=== PATIENT | male | born 1955 | race Caucasian/White ===

== ENCOUNTER 2022-08-12 07:30 | Day surgery (SDC) | payer MEDICARE ==
[2022-08-07 16:34] LABS: BASOPHILS % (AUTO) 0.5 % (0-1); EOSINOPHILS # (AUTO) 0.2 X10'3 (0-0.9); EOSINOPHILS % (AUTO) 2.1 % (0-6); LYMPHOCYTES % (AUTO) 24.8 % (21-51); MEAN CORPUSCULAR HEMOGLOBIN 33.6 PG (27.0-31.0); MEAN CORPUSCULAR HGB CONC 35.5 g/dL (33.0-36.5); MEAN CORPUSCULAR VOLUME 94.6 FL (78-98); MEAN PLATELET VOLUME 6.9 FL (7.4-10.4); MONOCYTES # (AUTO) 0.7 X10'3 (0-0.9); MONOCYTES % (AUTO) 8.4 % (2-12); NEUTROPHILS # (AUTO) 5.1 X10'3 (1.8-7.7); NEUTROPHILS % (AUTO) 64.2 % (42-75); PRE OP HEMATOCRIT 41.4 % (42.0-52.0); PRE OP HEMOGLOBIN 14.7 g/dL (14.0-17.9); PRE OP PLATELET COUNT 253 X10'3 (140-440); RED BLOOD COUNT 4.38 X10'6 (4.70-6.10)
[2022-08-07 16:51] LABS: ALBUMIN 4.2 G/DL (3.4-5.0); ALBUMIN/GLOBULIN RATIO 1.2 (1.1-1.5); ALKALINE PHOSPHATASE 61 IU/L (46-116); BLOOD UREA NITROGEN 15 MG/DL (7-18); BUN/CREATININE RATIO 13.6 (5.4-32.0); CALCIUM 9.2 MG/DL (8.5-10.1); CHLORIDE 103 MMOL/L (99-107); PRE OP ALT 48 U/L (30-65); PRE OP ANION GAP 8 (8-16); PRE OP AST 26 U/L (10-37); PRE OP BILIRUB, TOTAL 0.7 MG/DL (0.0-1.0); PRE OP GLUCOSE 87 MG/DL (70-104); PRE OP POTASSIUM 3.8 MMOL/L (3.4-5.1); PRE OP SODIUM 139 MMOL/L (135-145); TOTAL CARBON DIOXIDE 27.7 MMOL/L (24-32); TOTAL PROTEIN 7.6 G/DL (6.4-8.2); eGFR 67 ML/MIN
[~2022-08-12] VITALS: Ht 172.7 cm; Wt 98.4 kg
[2022-08-12] VITALS (17 sets, daily range): BP systolic 119–159; BP diastolic 63–95
[~2022-08-12 07:30] MED LIST: GLUC-95 PO; LISI10TA27 PO; MULT-1085 PO; ROSU40TA22 PO; ZOLP-240; ceFAZolin inj. 2,000 MG in dextrose 5%-water 100 ML IV ONE; famotidine 20mg tablet PO ONE; ringers solution, lacted 1,000 ML IV SCH
[2022-08-12] MEDS ORDERED: LIDOCAINE 1%/EPI 1:100,000 inj. 10 ML multi-dose vial ONE (09:30)
[2022-08-12] MEDS ORDERED: BUPIVAcaine/PF 2.5 mg/ml (0.25%) 30ml vial ONE (09:30)
[2022-08-12] MEDS ORDERED: tobramycin 40mg/ml inj ONE (09:30)
[2022-08-12] MEDS ORDERED: midazolam 1 mg/ML 2ml injection ONE (09:44)
[2022-08-12] MEDS ORDERED: fentaNYL/PF 50MCG/1 ML 2ML syringe ONE (09:44)
[2022-08-12] MEDS ORDERED: propofol inj 20 ML IV ONE (09:47)
[2022-08-12] MEDS ORDERED: LIDOcaine 2% (20mg/ml) 5ml vial ONE (09:47)
[2022-08-12] MEDS ORDERED: rocuronium 10mg/ml inj IV ONE ×2 (09:47→11:03)
[2022-08-12] MEDS ORDERED: ondansetron/PF 4mg/2ml inj ONE (09:47)
[2022-08-12] MEDS ORDERED: ondansetron/PF 4mg/2ml inj IV PRN (10:25)
[2022-08-12] MEDS ORDERED: ringers solution, lacted 1,000 ML IV SCH (10:25)
[2022-08-12] MEDS ORDERED: hydrALAZINE 20mg/ml inj. IV PRN (10:25)
[2022-08-12] MEDS ORDERED: fentaNYL/PF 50MCG/1 ML 2ML syringe IV PRN ×2 (10:25)
[2022-08-12] MEDS ORDERED: meperidine/PF 25mg/ml syringe IV PRN (10:25)
[2022-08-12] MEDS ORDERED: labetalol 20mg/4ml (5mg/ml) syringe IV PRN (10:25)
[2022-08-12] MEDS ORDERED: morphine 4 MG/ML inj SYRINge IV PRN (10:25)
[2022-08-12] MEDS ORDERED: glycopyrrolate 0.2mg/ml inj ONE (12:09)
[2022-08-12] MEDS ORDERED: neostigmine methylsulfate 1 MG/ML 10ml vial ONE (12:10)
--- NOTE | 2022-08-12 12:31 | NUR ---
Received from OR via BED, accompanied by Anesthesiologist DR ROWE and report given by Anesthesiologist AND FINANCIAL HEALTH COUNSELOR. PT DROWSY, DENIES PAIN. ABDOMEN W/3 LAP SITES CDI. Addendum: 08/12/22 at 1310 by Marjorie Soria RN Amended: Links added.
[2022-08-12] MEDS: morphine 2 MG/ML inj. syringe IV PRN ×2 (13:36→13:56)
[2022-08-12] MEDS ORDERED: HYDROcodone/acetaminophen 5mg/325mg tablet PO ONE (14:05)
--- NOTE | 2022-08-12 15:31 | NUR ---
PT UP AND ABLE TO AMBULATE SAFELY, PAIN TOLERABLE. PT VOIDED, BLADDER SCANNED POST VOID W/0 URINE NOTED. D/C INSTRUCTIONS GIVEN AND GONE OVER W/PT WHO VERBALIZED UNDERSTANDING. PT D/CD TO HOME VIA W/C TO PRIVATE VEHICLE W/O INCIDENT. Addendum: 08/12/22 at 1604 by Marjorie Soria RN Amended: Links added.
== END 2022-08-12 15:31 | disposition home or self-care (01) ==
LOC: PAS 07:30
PROVIDERS: ATTEND Colon & Rectal Surgery
DX: K40.90 Unilateral inguinal hernia, without obstruction or gangrene, not specified as recurrent (principal); K40.30 Unilateral inguinal hernia, with obstruction, without gangrene, not specified as recurrent; I10 Essential (primary) hypertension; I25.10 Atherosclerotic heart disease of native coronary artery without angina pectoris; K21.9 Gastro-esophageal reflux disease without esophagitis; Z98.890 Other specified postprocedural states; Z79.899 Other long term (current) drug therapy; Z72.89 Other problems related to lifestyle; Z95.5 Presence of coronary angioplasty implant and graft
CPT/HCPCS: 36415; 49650; 80053; 82948; 85025; 93005; C1758; C1781; J0690; J2250; J2270; J2405; J2704; J2710; J3010; J3260; J3490; J7030; J7060; J7120; Z7506; Z7508; Z7512; A4215; A4618; A7000